=== PATIENT | female | born 1950 | race Asian ===

== ENCOUNTER 2024-07-19 16:14 | Inpatient (IN) | payer OTHER ==
[~2024-07-19] VITALS: Ht 160 cm; Wt 61.7 kg
[2024-07-19] MEDS: IV NORMAL SALINE 1000 ML BAG IV ONE ×2 (16:31→18:47)
[2024-07-19] MEDS ORDERED: METF-442 PO (16:33)
[2024-07-19] MEDS ORDERED: INSU100I26 SQ (16:33)
[2024-07-19 16:56] LABS: BASOPHILS # (AUTO) 0.1 K/UL (0.0-0.2); BASOPHILS % (AUTO) 0.5 % (0.0-2.0); DIFFERENTIAL COMMENT 0; HEMATOCRIT 37.3 % (31.2-41.9); HEMOGLOBIN 11.9 g/dL (10.9-14.3); LYMPHOCYTES # (AUTO) 0.8 K/uL (0.8-4.8); LYMPHOCYTES % (AUTO) 6.9 % (20.5-51.5); MEAN CORPUSCULAR HEMOGLOBIN 31.5 uug (24.7-32.8); MEAN CORPUSCULAR HGB CONC 32 g/dL (32.3-35.6); MONOCYTES # (AUTO) 0.5 K/uL (0.1-1.30); MONOCYTES % (AUTO) 4.5 % (0.0-11.0); NEUTROPHILS # (AUTO) 10.5 K/uL (1.8-8.9); NEUTROPHILS % (AUTO) 88.1 % (38.5-71.5); PLATELET COUNT (AUTO) 289 K/uL (179-408); RED BLOOD CELL COUNT(AUTO) 3.77 MIL/uL (3.63-4.92); WHITE BLOOD COUNT (AUTO) 11.9 K/uL (3.8-11.8)
[2024-07-19 17:19] LABS: ALANINE AMINOTRANSFERASE 22 U/L (14-59); ALBUMIN 2.9 g/dL (3.4-5.0); ALKALINE PHOSPHATASE 117 U/L (50-136); ASPARTATE AMINOTRANSFERASE 19 U/L (15-37); BILIRUBIN,DIRECT 0.1 mg/dL (0.0-0.2); BILIRUBIN,TOTAL 0.5 mg/dL (0.2-1.0); CHLORIDE 103 mmol/L (98-107); POTASSIUM 3.6 mmol/L (3.5-5.1); SODIUM SERUM 143 mmol/L (136-145); TOTAL PROTEIN, SERUM 7.6 g/dL (6.4-8.2); UREA NITROGEN, BLOOD 25 mg/dL (7-18)
[2024-07-19 17:21] LABS: CARBON DIOXIDE 6 mmol/L (21-32); GLUCOSE 426 mg/dL (74-106)
[2024-07-19] MEDS ORDERED: POTASSIUM CHLORIDE 50 ML ONE ×2 (18:20→19:12)
[2024-07-19] MEDS: POTASSIUM CHLORIDE 50 ML IV ONE (18:31)
[2024-07-19 18:59] LABS: ACETONE, SERUM MODERATE (NEGATIVE)
[2024-07-19 19:11] LABS: LIPASE 63 U/L (16-77); NT-PRO BNP 537 pg/mL (0-125)
[2024-07-19] MEDS ORDERED: ACETAMINOPHEN 325 MG TABLET PO PRN (19:30)
[2024-07-19] MEDS ORDERED: MAGNESIUM HYDROXIDE 30 ML LIQUID UDC PO PRN (19:30)
[2024-07-19] MEDS ORDERED: REMEDY ESSENTIAL ZINC PASTE 113 GM TP PRN (19:30)
[2024-07-19] MEDS ORDERED: ONDANSETRON 4 MG/2 ML VIAL IV PRN (19:30)
[2024-07-19] MEDS: IV NS 1000 ML 1,000 ML IV SCH (19:30)
[2024-07-19] MEDS ORDERED: INSULIN REGULAR, HUMAN 1000 UNIT/10 ML VIAL ONE (19:55)
[2024-07-19] MEDS: INSULIN REGULAR, HUMAN 1000 UNIT/10 ML VIAL IV ONE (20:00)
[2024-07-19 22:03] LABS: CALCIUM 7.9 mg/dL (8.5-10.1); CHLORIDE 111 mmol/L (98-107); GLUCOSE 320 mg/dL (74-106); POTASSIUM 3.3 mmol/L (3.5-5.1); SODIUM SERUM 147 mmol/L (136-145); UREA NITROGEN, BLOOD 21 mg/dL (7-18)
[2024-07-19 22:21] LABS: CARBON DIOXIDE < 5 mmol/L (21-32)
[2024-07-19 23:00] VITALS: BP 124/75; O2SAT 100
[2024-07-19 23:15] VITALS: BP 124/75; O2SAT 100
[2024-07-19 23:30] VITALS: BP 126/69; TEMP 97.2; O2SAT 100
[2024-07-19 23:45] VITALS: BP 124/75; O2SAT 100
[2024-07-20] VITALS (46 sets, daily range): BP systolic 93–153; BP diastolic 50–88; TEMP 97–98.6; O2SAT 98–100
[2024-07-20] MEDS: LORAZEPAM 2 MG/1 ML VIAL IV ONE (01:54)
[2024-07-20] MEDS: IV NS 1000 ML 1,000 ML IV SCH (02:05)
[2024-07-20] MEDS: BLOOD SUGAR DIAGNOSTIC 1 EACH STRIP VI SCH ×2 (02:18→20:06)
[2024-07-20 02:42] LABS: CALCIUM 7.7 mg/dL (8.5-10.1); CHLORIDE 112 mmol/L (98-107); CREATININE 0.9 mg/dL (0.6-1.3); GLUCOSE 361 mg/dL (74-106); MAGNESIUM 1.9 mg/dL (1.8-2.4); PHOSPHOROUS 3.8 mg/dL (2.5-4.9); POTASSIUM 3.7 mmol/L (3.5-5.1); SODIUM SERUM 146 mmol/L (136-145); UREA NITROGEN, BLOOD 23 mg/dL (7-18)
[2024-07-20 02:50] LABS: CARBON DIOXIDE 6 mmol/L (21-32)
[2024-07-20 05:09] LABS: BASOPHILS # (AUTO) 0.1 K/UL (0.0-0.2); BASOPHILS % (AUTO) 0.4 % (0.0-2.0); EOSINOPHILS % (AUTO) 0.1 % (0.0-7.0); HEMATOCRIT 38.1 % (31.2-41.9); HEMOGLOBIN 11.9 g/dL (10.9-14.3); LYMPHOCYTES # (AUTO) 0.7 K/uL (0.8-4.8); LYMPHOCYTES % (AUTO) 4.1 % (20.5-51.5); MEAN CORPUSCULAR HEMOGLOBIN 32.3 uug (24.7-32.8); MEAN CORPUSCULAR HGB CONC 31 g/dL (32.3-35.6); MEAN CORPUSCULAR VOLUME 103.2 fL (75.5-95.3); MONOCYTES # (AUTO) 0.3 K/uL (0.1-1.30); MONOCYTES % (AUTO) 1.7 % (0.0-11.0); NEUTROPHILS # (AUTO) 15.3 K/uL (1.8-8.9); NEUTROPHILS % (AUTO) 93.7 % (38.5-71.5); PLATELET COUNT (AUTO) 285 K/uL (179-408); RED BLOOD CELL COUNT(AUTO) 3.69 MIL/uL (3.63-4.92); RED CELL DISTRIBUTION WIDTH 14.4 % (12.3-17.7); WHITE BLOOD COUNT (AUTO) 16.3 K/uL (3.8-11.8)
[2024-07-20] MEDS ORDERED: ONDANSETRON 4 MG/2 ML VIAL IV PRN (05:15)
[2024-07-20 05:23] LABS: CALCIUM 7.7 mg/dL (8.5-10.1); CHLORIDE 115 mmol/L (98-107); GLUCOSE 316 mg/dL (74-106); MAGNESIUM 1.8 mg/dL (1.8-2.4); PHOSPHOROUS 2.9 mg/dL (2.5-4.9); POTASSIUM 3.2 mmol/L (3.5-5.1); SODIUM SERUM 148 mmol/L (136-145); UREA NITROGEN, BLOOD 25 mg/dL (7-18)
[2024-07-20 05:43] LABS: CARBON DIOXIDE < 5 mmol/L (21-32)
[2024-07-20 06:36] LABS: ABG BASE EXCESS -25.8 mmol/L (-2.0-3.0); ABG HCO3 3.3 mmol/L (21.0-28.0); ABG PCO2 13.4 mmHg (32.0-45.0); ABG PH 7.015 (7.350-7.450); ABG PO2 111.8 mmHg (83.0-108.0); ABG SITE LEFT RADIAL; ABG TOTAL HEMOGLOBIN 11.8 G/dL (12.0-16.0); AaDO2 95.7 mmHg; COHb 0.4 % (0.5-1.5); MetHb 0.1 % (0.0-1.5); O2Hb 97.4 % (94.0-98.0)
[2024-07-20] MEDS: MAGNESIUM SULFATE/D5W 100 ML IV SCH (07:52)
[2024-07-20] MEDS: POTASSIUM CHLORIDE 50 ML IV SCH (07:52)
[2024-07-20] MEDS: INSULIN REGULAR, HUMAN 100 UNIT in IV NORMAL SALINE 99 ML IV PRN (08:11)
[2024-07-20 10:30] LABS: CALCIUM 8.2 mg/dL (8.5-10.1); CHLORIDE 117 mmol/L (98-107); CREATININE 1.1 mg/dL (0.6-1.3); GLUCOSE 146 mg/dL (74-106); MAGNESIUM 1.8 mg/dL (1.8-2.4); POTASSIUM 3.1 mmol/L (3.5-5.1); SODIUM SERUM 147 mmol/L (136-145); UREA NITROGEN, BLOOD 25 mg/dL (7-18)
[2024-07-20 10:53] LABS: CARBON DIOXIDE 8 mmol/L (21-32)
[2024-07-20 10:54] LABS: PHOSPHOROUS 0.7 mg/dL (2.5-4.9)
[2024-07-20 11:48] LABS: *BLOOD, URINE 2+ (NEGATIVE); *CLARITY,URINE CLEAR (CLEAR); *COLOR,URINE YELLOW (YELLOW); *PROTEIN,URINE 2+ (NEGATIVE); UGLUCOSE 2+ (NEGATIVE)
[2024-07-20 11:49] LABS: *BILIRUBIN,URIN 1+ (NEGATIVE); *KETONES,URINE 4+ (NEGATIVE); *UROBILINOGEN,URINE 0.2 E.U./dl (NORMAL); LEUKOCYTE ESTERASE ,URINE NEGATIVE (NEGATIVE); NITRITE, URINE NEGATIVE (NEGATIVE)
[2024-07-20 12:37] LABS: BACTERIA,URINE FEW /HPF (NONE SEEN); WBC,URINE 0-3 /HPF (0-3)
[2024-07-20 15:02] LABS: CALCIUM 8.2 mg/dL (8.5-10.1); CHLORIDE 120 mmol/L (98-107); CREATININE 1.1 mg/dL (0.6-1.3); GLUCOSE 98 mg/dL (74-106); MAGNESIUM 2.6 mg/dL (1.8-2.4); POTASSIUM 3.1 mmol/L (3.5-5.1); SODIUM SERUM 148 mmol/L (136-145); UREA NITROGEN, BLOOD 27 mg/dL (7-18)
[2024-07-20 15:05] LABS: CARBON DIOXIDE 10 mmol/L (21-32); PHOSPHOROUS 0.5 mg/dL (2.5-4.9)
[2024-07-20] MEDS: POTASSIUM PHOSPHATE MM 15 MMOL in IV NORMAL SALINE 250 ML IV ONE ×2 (15:14→22:00)
[2024-07-20] MEDS: POTASSIUM CHLORIDE 20 MEQ in IV D5 1/2 NS 1000 ML 1,000 ML IV PRN (15:57)
[2024-07-20] MEDS ORDERED: DEXTROSE 50% 50 ML DISP.SYRIN IV PRN (16:15)
[2024-07-20 18:25] LABS: CALCIUM 8.4 mg/dL (8.5-10.1); CARBON DIOXIDE 12 mmol/L (21-32); CHLORIDE 118 mmol/L (98-107); CREATININE 1.2 mg/dL (0.6-1.3); GLUCOSE 118 mg/dL (74-106); MAGNESIUM 2.8 mg/dL (1.8-2.4); POTASSIUM 3.5 mmol/L (3.5-5.1); SODIUM SERUM 146 mmol/L (136-145); UREA NITROGEN, BLOOD 28 mg/dL (7-18)
[2024-07-20] MEDS: ENOXAPARIN SODIUM 30 MG/0.3 ML DISP.SYRIN SUBCUT SCH (21:00)
[2024-07-20 22:38] LABS: CALCIUM 7.9 mg/dL (8.5-10.1); CARBON DIOXIDE 11 mmol/L (21-32); CHLORIDE 119 mmol/L (98-107); CREATININE 1.3 mg/dL (0.6-1.3); GLUCOSE 193 mg/dL (74-106); MAGNESIUM 2.6 mg/dL (1.8-2.4); PHOSPHOROUS 2.7 mg/dL (2.5-4.9); POTASSIUM 3.7 mmol/L (3.5-5.1); SODIUM SERUM 148 mmol/L (136-145); UREA NITROGEN, BLOOD 27 mg/dL (7-18)
[2024-07-20] MEDS: INSULIN REGULAR, HUMAN 1000 UNIT/10 ML VIAL SQ PRN (23:52)
[2024-07-21] VITALS (25 sets, daily range): BP systolic 114–155; BP diastolic 57–93; TEMP 96.9–98.8; O2SAT 95–100
[2024-07-21 07:27] LABS: ABG BASE EXCESS -15.5 mmol/L (-2.0-3.0); ABG HCO3 9.1 mmol/L (21.0-28.0); ABG PCO2 19.7 mmHg (32.0-45.0); ABG PH 7.284 (7.350-7.450); ABG PO2 86.1 mmHg (83.0-108.0); ABG SITE LEFT RADIAL; ABG TOTAL HEMOGLOBIN 11.7 G/dL (12.0-16.0); AaDO2 95.7 mmHg; COHb 0.3 % (0.5-1.5); MetHb 0.3 % (0.0-1.5); O2Hb 95.9 % (94.0-98.0)
[2024-07-21 07:42] LABS: BASOPHILS % (AUTO) 0.3 % (0.0-2.0); HEMOGLOBIN 11.5 g/dL (10.9-14.3); LYMPHOCYTES # (AUTO) 0.4 K/uL (0.8-4.8); LYMPHOCYTES % (AUTO) 3.9 % (20.5-51.5); MEAN CORPUSCULAR HGB CONC 33 g/dL (32.3-35.6); MEAN CORPUSCULAR VOLUME 94.7 fL (75.5-95.3); MONOCYTES # (AUTO) 1.1 K/uL (0.1-1.30); MONOCYTES % (AUTO) 9.7 % (0.0-11.0); NEUTROPHILS # (AUTO) 9.6 K/uL (1.8-8.9); NEUTROPHILS % (AUTO) 86.1 % (38.5-71.5); PLATELET COUNT (AUTO) 232 K/uL (179-408); RED CELL DISTRIBUTION WIDTH 14.1 % (12.3-17.7); WHITE BLOOD COUNT (AUTO) 11.2 K/uL (3.8-11.8)
[2024-07-21 07:51] LABS: DIFFERENTIAL COMMENT 1
[2024-07-21 07:53] LABS: CALCIUM 7.9 mg/dL (8.5-10.1); CARBON DIOXIDE 13 mmol/L (21-32); CHLORIDE 120 mmol/L (98-107); CREATININE 1.4 mg/dL (0.6-1.3); GLUCOSE 248 mg/dL (74-106); MAGNESIUM 2.4 mg/dL (1.8-2.4); PHOSPHOROUS 3.4 mg/dL (2.5-4.9); POTASSIUM 3.3 mmol/L (3.5-5.1); SODIUM SERUM 149 mmol/L (136-145); UREA NITROGEN, BLOOD 26 mg/dL (7-18)
[2024-07-21] MEDS ORDERED: IV NORMAL SALINE 1000 ML BAG IV SCH (09:45)
[2024-07-21] MEDS: INSULIN REGULAR, HUMAN 100 UNIT in IV NORMAL SALINE 99 ML IV PRN (09:55)
[2024-07-21] MEDS: POTASSIUM CHLORIDE 50 ML IV SCH ×3 (09:56→22:40)
[2024-07-21] MEDS: BLOOD SUGAR DIAGNOSTIC 1 EACH STRIP VI SCH ×3 (09:57→23:40)
[2024-07-21] MEDS: FAMOTIDINE. 20 MG/2 ML VIAL IV SCH (09:58)
[2024-07-21] MEDS: PIPERACILLIN SODIUM/TAZOBACTAM 3.375 G in IV DEXTROSE 5% 50 ML IV SCH (10:00)
[2024-07-21] MEDS: AZITHROMYCIN IV 500 MG in IV DEXTROSE 5% 250 ML IV SCH (10:00)
[2024-07-21] MEDS: IV NS 1000 ML 1,000 ML IV SCH (10:20)
[2024-07-21] MEDS: PIPERACILLIN SODIUM/TAZOBACTAM 3.375 G in IV DEXTROSE 5% 100 ML IV SCH (12:26)
[2024-07-21] MEDS: POTASSIUM PHOSPHATE MM 15 MMOL in IV NORMAL SALINE 250 ML IV ONE (12:26)
[2024-07-21 14:27] LABS: CALCIUM 7.7 mg/dL (8.5-10.1); CARBON DIOXIDE 12 mmol/L (21-32); CHLORIDE 122 mmol/L (98-107); CREATININE 1.3 mg/dL (0.6-1.3); GLUCOSE 176 mg/dL (74-106); MAGNESIUM 2.2 mg/dL (1.8-2.4); POTASSIUM 3.1 mmol/L (3.5-5.1); SODIUM SERUM 150 mmol/L (136-145); UREA NITROGEN, BLOOD 22 mg/dL (7-18)
[2024-07-21] MEDS: LORAZEPAM 2 MG/1 ML VIAL IV PRN (19:12)
[2024-07-21 19:51] LABS: CALCIUM 7.7 mg/dL (8.5-10.1); CARBON DIOXIDE 13 mmol/L (21-32); CHLORIDE 123 mmol/L (98-107); CREATININE 1.3 mg/dL (0.6-1.3); GLUCOSE 150 mg/dL (74-106); POTASSIUM 3.5 mmol/L (3.5-5.1); SODIUM SERUM 151 mmol/L (136-145); UREA NITROGEN, BLOOD 21 mg/dL (7-18)
[2024-07-21] MEDS: ENOXAPARIN SODIUM 40 MG/0.4 ML DISP.SYRIN SQ SCH (20:30)
[2024-07-21] MEDS ORDERED: ENOXAPARIN SODIUM 30 MG/0.3 ML DISP.SYRIN SUBCUT SCH (21:00)
[2024-07-21 22:14] LABS: CALCIUM 7.4 mg/dL (8.5-10.1); CARBON DIOXIDE 15 mmol/L (21-32); CHLORIDE 123 mmol/L (98-107); CREATININE 1.2 mg/dL (0.6-1.3); GLUCOSE 137 mg/dL (74-106); MAGNESIUM 1.9 mg/dL (1.8-2.4); POTASSIUM 3.5 mmol/L (3.5-5.1); SODIUM SERUM 151 mmol/L (136-145); UREA NITROGEN, BLOOD 19 mg/dL (7-18)
[2024-07-22] VITALS (33 sets, daily range): BP systolic 111–157; BP diastolic 62–86; TEMP 97.7–98.9; O2SAT 92–100
[2024-07-22 02:31] LABS: CALCIUM 7.9 mg/dL (8.5-10.1); CARBON DIOXIDE 14 mmol/L (21-32); CHLORIDE 124 mmol/L (98-107); CREATININE 1.3 mg/dL (0.6-1.3); GLUCOSE 131 mg/dL (74-106); MAGNESIUM 1.9 mg/dL (1.8-2.4); POTASSIUM 3.6 mmol/L (3.5-5.1); SODIUM SERUM 151 mmol/L (136-145); UREA NITROGEN, BLOOD 17 mg/dL (7-18)
[2024-07-22 05:35] LABS: ABG SITE LEFT RADIAL; COHb 0.3 % (0.5-1.5); VT, ABG 550 mL
[2024-07-22] MEDS: POTASSIUM CHLORIDE 50 ML IV SCH ×2 (05:47→13:21)
[2024-07-22 06:03] LABS: BASOPHILS % (AUTO) 0.3 % (0.0-2.0); EOSINOPHILS % (AUTO) 0.1 % (0.0-7.0); HEMATOCRIT 37.2 % (31.2-41.9); HEMOGLOBIN 12.4 g/dL (10.9-14.3); LYMPHOCYTES # (AUTO) 0.7 K/uL (0.8-4.8); LYMPHOCYTES % (AUTO) 5.9 % (20.5-51.5); MEAN CORPUSCULAR HEMOGLOBIN 31.4 uug (24.7-32.8); MEAN CORPUSCULAR HGB CONC 34 g/dL (32.3-35.6); MEAN CORPUSCULAR VOLUME 93.7 fL (75.5-95.3); MONOCYTES # (AUTO) 0.7 K/uL (0.1-1.30); MONOCYTES % (AUTO) 5.8 % (0.0-11.0); NEUTROPHILS # (AUTO) 10.7 K/uL (1.8-8.9); NEUTROPHILS % (AUTO) 87.9 % (38.5-71.5); PLATELET COUNT (AUTO) 229 K/uL (179-408); RED BLOOD CELL COUNT(AUTO) 3.97 MIL/uL (3.63-4.92); WHITE BLOOD COUNT (AUTO) 12.1 K/uL (3.8-11.8)
[2024-07-22 06:12] LABS: ABG HCO3 11.5 mmol/L (21.0-28.0); ABG PCO2 23.6 mmHg (32.0-45.0); ABG PH 7.305 (7.350-7.450); ABG PO2 92.5 mmHg (83.0-108.0); ABG TOTAL HEMOGLOBIN 12.5 G/dL (12.0-16.0); AaDO2 96.6 mmHg; MetHb 0.3 % (0.0-1.5); O2Hb 96.1 % (94.0-98.0)
[2024-07-22 07:01] LABS: CALCIUM 8.4 mg/dL (8.5-10.1); CARBON DIOXIDE 15 mmol/L (21-32); CHLORIDE 123 mmol/L (98-107); CREATININE 1.3 mg/dL (0.6-1.3); GLUCOSE 179 mg/dL (74-106); POTASSIUM 3.4 mmol/L (3.5-5.1); SODIUM SERUM 152 mmol/L (136-145); UREA NITROGEN, BLOOD 16 mg/dL (7-18)
[2024-07-22 07:05] LABS: MAGNESIUM 2.1 mg/dL (1.8-2.4); PHOSPHOROUS 2.8 mg/dL (2.5-4.9)
[2024-07-22 07:08] LABS: C-REACTIVE PROTEIN 7.32 mg/dL (0.00-0.30)
[2024-07-22 07:47] LABS: ACETONE, SERUM NEGATIVE (NEGATIVE)
[2024-07-22] MEDS: ALBUTEROL SULFATE 2.5 MG/3 ML NEBU NEB PRN (07:58)
[2024-07-22] MEDS: IPRATROPIUM BROMIDE 0.5 MG/2.5 ML NEBU NEB PRN (07:58)
[2024-07-22 11:46] LABS: CALCIUM 8.4 mg/dL (8.5-10.1); CARBON DIOXIDE 14 mmol/L (21-32); CHLORIDE 120 mmol/L (98-107); CREATININE 1.4 mg/dL (0.6-1.3); GLUCOSE 167 mg/dL (74-106); POTASSIUM 3.2 mmol/L (3.5-5.1); SODIUM SERUM 150 mmol/L (136-145); UREA NITROGEN, BLOOD 16 mg/dL (7-18)
[2024-07-22 11:55] LABS: MAGNESIUM 1.8 mg/dL (1.8-2.4); PHOSPHOROUS 1.6 mg/dL (2.5-4.9)
[2024-07-22] MEDS: ACETYLCYSTEINE 20% 800 MG/4 ML VIAL NEB SCH (14:53)
[2024-07-22 15:50] LABS: CALCIUM 8.1 mg/dL (8.5-10.1); CARBON DIOXIDE 14 mmol/L (21-32); CHLORIDE 122 mmol/L (98-107); CREATININE 1.2 mg/dL (0.6-1.3); GLUCOSE 87 mg/dL (74-106); MAGNESIUM 1.7 mg/dL (1.8-2.4); POTASSIUM 3.6 mmol/L (3.5-5.1); SODIUM SERUM 150 mmol/L (136-145); UREA NITROGEN, BLOOD 13 mg/dL (7-18)
[2024-07-22] MEDS ORDERED: IV NS 1000 ML 1,000 ML IV PRN (17:00)
[2024-07-22] MEDS: MAGNESIUM SULFATE/D5W 100 ML IV SCH (17:10)
[2024-07-22] MEDS: POTASSIUM PHOSPHATE MM 15 MMOL in IV NORMAL SALINE 250 ML IV ONE (18:08)
[2024-07-22] MEDS: INSULIN REGULAR, HUMAN 100 UNIT in IV NORMAL SALINE 99 ML IV PRN (19:05)
[2024-07-22 19:41] LABS: CARBON DIOXIDE 14 mmol/L (21-32); CHLORIDE 120 mmol/L (98-107); CREATININE 1.3 mg/dL (0.6-1.3); GLUCOSE 257 mg/dL (74-106); POTASSIUM 3.6 mmol/L (3.5-5.1); SODIUM SERUM 148 mmol/L (136-145); UREA NITROGEN, BLOOD 14 mg/dL (7-18)
[2024-07-22 23:51] LABS: CALCIUM 8.1 mg/dL (8.5-10.1); CARBON DIOXIDE 15 mmol/L (21-32); CHLORIDE 122 mmol/L (98-107); CREATININE 1.2 mg/dL (0.6-1.3); GLUCOSE 115 mg/dL (74-106); POTASSIUM 3.3 mmol/L (3.5-5.1); SODIUM SERUM 153 mmol/L (136-145); UREA NITROGEN, BLOOD 13 mg/dL (7-18)
[2024-07-23] VITALS (29 sets, daily range): BP systolic 102–155; BP diastolic 57–106; TEMP 97.6–98.2; O2SAT 97–100
[2024-07-23] MEDS: DEXTROSE 50% 50 ML DISP.SYRIN IV ONE ×3 (03:30→13:06)
[2024-07-23 05:10] LABS: BASOPHILS % (AUTO) 0.1 % (0.0-2.0); HEMATOCRIT 31.3 % (31.2-41.9); HEMOGLOBIN 10.5 g/dL (10.9-14.3); LYMPHOCYTES # (AUTO) 0.8 K/uL (0.8-4.8); LYMPHOCYTES % (AUTO) 6.1 % (20.5-51.5); MEAN CORPUSCULAR HEMOGLOBIN 31.5 uug (24.7-32.8); MEAN CORPUSCULAR HGB CONC 34 g/dL (32.3-35.6); MEAN CORPUSCULAR VOLUME 93.7 fL (75.5-95.3); MONOCYTES # (AUTO) 0.9 K/uL (0.1-1.30); MONOCYTES % (AUTO) 6.9 % (0.0-11.0); NEUTROPHILS % (AUTO) 86.9 % (38.5-71.5); PLATELET COUNT (AUTO) 183 K/uL (179-408); RED BLOOD CELL COUNT(AUTO) 3.34 MIL/uL (3.63-4.92); RED CELL DISTRIBUTION WIDTH 14.3 % (12.3-17.7); WHITE BLOOD COUNT (AUTO) 12.6 K/uL (3.8-11.8)
[2024-07-23 05:13] LABS: DIFFERENTIAL COMMENT 1
[2024-07-23 05:26] LABS: CALCIUM 7.9 mg/dL (8.5-10.1); CARBON DIOXIDE 18 mmol/L (21-32); CHLORIDE 121 mmol/L (98-107); CREATININE 1.2 mg/dL (0.6-1.3); GLUCOSE 193 mg/dL (74-106); MAGNESIUM 2.1 mg/dL (1.8-2.4); PHOSPHOROUS 2.8 mg/dL (2.5-4.9); POTASSIUM 3.2 mmol/L (3.5-5.1); SODIUM SERUM 151 mmol/L (136-145); UREA NITROGEN, BLOOD 13 mg/dL (7-18)
[2024-07-23] MEDS: DEXTROSE 50% 50 ML DISP.SYRIN IV PRN (16:13)
[2024-07-23 17:36] LABS: CARBON DIOXIDE 17 mmol/L (21-32); CHLORIDE 119 mmol/L (98-107); CREATININE 1.2 mg/dL (0.6-1.3); GLUCOSE 198 mg/dL (74-106); SODIUM SERUM 151 mmol/L (136-145); UREA NITROGEN, BLOOD 12 mg/dL (7-18)
[2024-07-23 17:40] LABS: CALCIUM 8.1 mg/dL (8.5-10.1)
[2024-07-23] MEDS: POTASSIUM CHLORIDE 50 ML IV SCH ×2 (18:59→20:45)
[2024-07-23 21:13] LABS: CALCIUM 8.1 mg/dL (8.5-10.1); CARBON DIOXIDE 19 mmol/L (21-32); CHLORIDE 120 mmol/L (98-107); CREATININE 1.2 mg/dL (0.6-1.3); GLUCOSE 164 mg/dL (74-106); SODIUM SERUM 153 mmol/L (136-145); UREA NITROGEN, BLOOD 11 mg/dL (7-18)
[2024-07-24] VITALS (27 sets, daily range): BP systolic 90–161; BP diastolic 55–105; TEMP 97.7–98; O2SAT 87–100
[2024-07-24] MEDS: POTASSIUM CHLORIDE 50 ML IV SCH (00:19)
[2024-07-24 02:53] LABS: CALCIUM 8.4 mg/dL (8.5-10.1); CARBON DIOXIDE 19 mmol/L (21-32); CHLORIDE 125 mmol/L (98-107); CREATININE 1.2 mg/dL (0.6-1.3); GLUCOSE 55 mg/dL (74-106); POTASSIUM 3.7 mmol/L (3.5-5.1); UREA NITROGEN, BLOOD 10 mg/dL (7-18)
[2024-07-24 03:10] LABS: SODIUM SERUM 157 mmol/L (136-145)
[2024-07-24] MEDS ORDERED: DEXTROSE 50% 50 ML DISP.SYRIN ONE (04:30)
[2024-07-24 05:49] LABS: BASOPHILS % (AUTO) 0.3 % (0.0-2.0); EOSINOPHILS # (AUTO) 0.1 K/uL (0.0-0.7); EOSINOPHILS % (AUTO) 0.6 % (0.0-7.0); HEMATOCRIT 33.1 % (31.2-41.9); HEMOGLOBIN 11.5 g/dL (10.9-14.3); LYMPHOCYTES # (AUTO) 0.8 K/uL (0.8-4.8); LYMPHOCYTES % (AUTO) 5.9 % (20.5-51.5); MEAN CORPUSCULAR HEMOGLOBIN 32.2 uug (24.7-32.8); MEAN CORPUSCULAR HGB CONC 35 g/dL (32.3-35.6); MONOCYTES # (AUTO) 0.9 K/uL (0.1-1.30); MONOCYTES % (AUTO) 6.7 % (0.0-11.0); NEUTROPHILS # (AUTO) 11.1 K/uL (1.8-8.9); NEUTROPHILS % (AUTO) 86.5 % (38.5-71.5); PLATELET COUNT (AUTO) 216 K/uL (179-408); RED BLOOD CELL COUNT(AUTO) 3.56 MIL/uL (3.63-4.92); RED CELL DISTRIBUTION WIDTH 14.5 % (12.3-17.7); WHITE BLOOD COUNT (AUTO) 12.8 K/uL (3.8-11.8)
[2024-07-24 06:05] LABS: CALCIUM 8.3 mg/dL (8.5-10.1); CARBON DIOXIDE 18 mmol/L (21-32); CHLORIDE 119 mmol/L (98-107); CREATININE 1.1 mg/dL (0.6-1.3); GLUCOSE 127 mg/dL (74-106); MAGNESIUM 1.5 mg/dL (1.8-2.4); PHOSPHOROUS 1.6 mg/dL (2.5-4.9); POTASSIUM 3.5 mmol/L (3.5-5.1); SODIUM SERUM 151 mmol/L (136-145); UREA NITROGEN, BLOOD 9 mg/dL (7-18)
[2024-07-24 06:10] LABS: ABG BASE EXCESS -8.8 mmol/L (-2.0-3.0); ABG HCO3 13.8 mmol/L (21.0-28.0); ABG PCO2 21.7 mmHg (32.0-45.0); ABG PH 7.422 (7.350-7.450); ABG PO2 106.8 mmHg (83.0-108.0); ABG TOTAL HEMOGLOBIN 11.3 G/dL (12.0-16.0); AaDO2 98.1 mmHg; COHb 0.1 % (0.5-1.5); O2Hb 97.5 % (94.0-98.0)
[2024-07-24] MEDS ORDERED: IV D5W 1000ML 1,000 ML IV PRN (07:00)
[2024-07-24] MEDS ORDERED: DEXTROSE 50% 50 ML DISP.SYRIN IV PRN (08:15)
[2024-07-24] MEDS: MAGNESIUM SULFATE/D5W 100 ML IV SCH (09:23)
[2024-07-24] MEDS: POTASSIUM CHLORIDE 20 MEQ in IV 1/2NS 1000 ML 1,000 ML IV PRN (09:31)
[2024-07-24] MEDS: BLOOD SUGAR DIAGNOSTIC 1 EACH STRIP VI SCH (11:23)
[2024-07-24] MEDS: INSULIN REGULAR, HUMAN 1000 UNIT/10 ML VIAL SQ PRN (11:25)
[2024-07-24 11:51] LABS: THYROID STIMULATING HORMONE 0.581 mIU/mL (0.358-3.740)
[2024-07-24 11:57] LABS: CALCIUM 8.5 mg/dL (8.5-10.1); CARBON DIOXIDE 19 mmol/L (21-32); CHLORIDE 117 mmol/L (98-107); CREATININE 1.1 mg/dL (0.6-1.3); GLUCOSE 217 mg/dL (74-106); POTASSIUM 3.8 mmol/L (3.5-5.1); SODIUM SERUM 149 mmol/L (136-145); UREA NITROGEN, BLOOD 10 mg/dL (7-18)
[2024-07-24 12:43] LABS: ALBUMIN 1.7 g/dL (3.4-5.0); BILIRUBIN,DIRECT 0.2 mg/dL (0.0-0.2); BILIRUBIN,TOTAL 0.6 mg/dL (0.2-1.0); TOTAL PROTEIN, SERUM 5.8 g/dL (6.4-8.2)
[2024-07-24] MEDS: POTASSIUM PHOSPHATE MM 15 MMOL in IV NORMAL SALINE 250 ML IV ONE (13:32)
[2024-07-24] MEDS ORDERED: IOHEXOL 350 100 ML INFUS..BTL ONE (19:34)
[2024-07-24] MEDS ORDERED: SWABABLE VALVE TRANSFER SET EA MC ONE (19:34)
[2024-07-24] MEDS ORDERED: IV NORMAL SALINE 250 ML IV ONE (19:34)
[2024-07-24] MEDS: INSULIN GLARGINE,HUM 300 UNITS/3 ML CARTRIDGE SQ SCH (21:00)
[2024-07-24] MEDS: ENOXAPARIN SODIUM 60 MG/0.6 ML DISP.SYRIN SQ SCH (21:00)
[2024-07-25] VITALS (26 sets, daily range): BP systolic 97–158; BP diastolic 58–88; TEMP 97.6–98.2; O2SAT 97–100
[2024-07-25] MEDS: LEVALBUTEROL HCL NEB 0.63 MG/3 ML NEBU NEB PRN (00:05)
[2024-07-25 05:43] LABS: BASOPHILS % (AUTO) 0.3 % (0.0-2.0); EOSINOPHILS # (AUTO) 0.1 K/uL (0.0-0.7); EOSINOPHILS % (AUTO) 1.7 % (0.0-7.0); HEMATOCRIT 34.5 % (31.2-41.9); HEMOGLOBIN 12.1 g/dL (10.9-14.3); LYMPHOCYTES # (AUTO) 0.7 K/uL (0.8-4.8); LYMPHOCYTES % (AUTO) 8.3 % (20.5-51.5); MEAN CORPUSCULAR HEMOGLOBIN 32.1 uug (24.7-32.8); MEAN CORPUSCULAR HGB CONC 35 g/dL (32.3-35.6); MEAN CORPUSCULAR VOLUME 91.7 fL (75.5-95.3); MONOCYTES # (AUTO) 0.6 K/uL (0.1-1.30); MONOCYTES % (AUTO) 7.8 % (0.0-11.0); NEUTROPHILS # (AUTO) 6.8 K/uL (1.8-8.9); NEUTROPHILS % (AUTO) 81.9 % (38.5-71.5); PLATELET COUNT (AUTO) 219 K/uL (179-408); RED BLOOD CELL COUNT(AUTO) 3.77 MIL/uL (3.63-4.92); RED CELL DISTRIBUTION WIDTH 14.2 % (12.3-17.7); WHITE BLOOD COUNT (AUTO) 8.3 K/uL (3.8-11.8)
[2024-07-25 05:54] LABS: DIFFERENTIAL COMMENT 1
[2024-07-25 06:06] LABS: ALANINE AMINOTRANSFERASE 40 U/L (14-59); ALBUMIN 1.9 g/dL (3.4-5.0); ALKALINE PHOSPHATASE 119 U/L (50-136); ASPARTATE AMINOTRANSFERASE 21 U/L (15-37); BILIRUBIN,TOTAL 0.6 mg/dL (0.2-1.0); CALCIUM 8.4 mg/dL (8.5-10.1); CARBON DIOXIDE 23 mmol/L (21-32); CHLORIDE 113 mmol/L (98-107); CREATININE 1.1 mg/dL (0.6-1.3); GLUCOSE 164 mg/dL (74-106); MAGNESIUM 1.9 mg/dL (1.8-2.4); PHOSPHOROUS 4.1 mg/dL (2.5-4.9); POTASSIUM 3.2 mmol/L (3.5-5.1); SODIUM SERUM 147 mmol/L (136-145); TOTAL PROTEIN, SERUM 6.5 g/dL (6.4-8.2); UREA NITROGEN, BLOOD 11 mg/dL (7-18)
[2024-07-25] MEDS: POTASSIUM CHLORIDE 50 ML IV SCH (12:20)
== END 2024-07-25 23:30 | disposition short-term general hospital (02) | DRG 637 ==
LOC: ER 16:14 → CCU 21:25 → TELE3 07-25 19:32
PROVIDERS: ADMIT Internal Medicine; ATTEND Internal Medicine
DX: E11.10 Type 2 diabetes mellitus with ketoacidosis without coma (principal); A41.9 Sepsis, unspecified organism; G92.8 Other toxic encephalopathy; J15.9 Unspecified bacterial pneumonia; N17.0 Acute kidney failure with tubular necrosis; J69.0 Pneumonitis due to inhalation of food and vomit; E43 Unspecified severe protein-calorie malnutrition; I21.A1 Myocardial infarction type 2; J96.01 Acute respiratory failure with hypoxia; E87.0 Hyperosmolality and hypernatremia; J90 Pleural effusion, not elsewhere classified; J98.11 Atelectasis; Z79.4 Long term (current) use of insulin; Z79.84 Long term (current) use of oral hypoglycemic drugs; Z91.148 Patient's other noncompliance with medication regimen for other reason; E86.1 Hypovolemia; E83.39 Other disorders of phosphorus metabolism; E87.6 Hypokalemia; E83.42 Hypomagnesemia; N28.1 Cyst of kidney, acquired
CPT/HCPCS: 36415; 36600; 70450; 71045; 71275; 82803; 83690; 83735; 84100; 84132; 84443; 84484; 85025; 86140; 93307; 94640; 94664; 94760; A4606; A4663; G0378; J0456; J1650; J1815; J2060; J2543; J3475; J3480; J3490; J3590; J7040; J7050; J7070; J7614; Q9967